=== PATIENT | female | born 2000 | race Native Hawaiian/Other Pacific Islander ===

== ENCOUNTER 2019-12-22 09:33 | Emergency (ER) | payer OTHER ==
[~2019-12-22] VITALS: Ht 160 cm; Wt 81.6 kg
[2019-12-22 09:41] VITALS: TEMP 98
[2019-12-22 11:15] VITALS: BP 110/71
[2019-12-22 11:42] LABS: POTASSIUM 4.3 mmol/L (3.6-5.2)
[2019-12-22 12:02] LABS: PLATELET COUNT 299 K/uL (152-353)
== END 2019-12-22 11:40 | disposition home or self-care (01) ==
LOC: ED 09:33
PROVIDERS: Family Medicine
DX: K58.9 Irritable bowel syndrome, unspecified (principal); R11.2 Nausea with vomiting, unspecified
CPT/HCPCS: 36415; 80053; 85027; 96360; 96375; 99284; J2550; J2765